=== PATIENT | male | born 1930 | race Caucasian/White ===

== ENCOUNTER 2018-12-17 06:24 | Emergency (ER) | payer MEDICARE ==
[~2018-12-17] VITALS: Ht 175.3 cm; Wt 78.4 kg
--- NOTE | 2018-12-17 06:58 | NUR ---
report given to hanna merritt
[2018-12-17] MEDS ORDERED: DIPH,PERTUSS(ACELL),TET VAC/PF 0.5 ML IM-VACC ONE ×2 (07:00→08:35)
--- NOTE | 2018-12-17 07:19 | NUR ---
Recieved bedside report from DESIREE Heath. KURT. Pt resting awake on gurney. Pt has approximately 1cm or smaller laceration to tip of right forth finger with ecchymosis to palm side of right 4th finger. All safety measures in place. Call light within reach. No needs expressed at this time.
--- NOTE | 2018-12-17 07:56 | NUR ---
Pt transfered on gurney to imaging.
--- NOTE | 2018-12-17 09:13 | NUR ---
Pt back to room from imaging.
--- NOTE | 2018-12-17 09:22 | NUR ---
Pt up independently to change into personal clothing. NADN. No obvious defecits observed.
--- NOTE | 2018-12-17 09:33 | NUR ---
Patient given discharge instructions and they have confirmed that they understand the instructions. Patient ambulatory with steady gait. Pt left with all personal belongings, discharge paperwork, and prescriptions.
[2018-12-17 09:34] VITALS: BP 133/67
== END 2018-12-17 09:36 | disposition home or self-care (01) ==
LOC: ED 07:45
DX: S60.512A Abrasion of left hand, initial encounter (principal); R51 Headache; W01.0XXA Fall on same level from slipping, tripping and stumbling without subsequent striking against object, initial encounter; Y93.01 Activity, walking, marching and hiking; Y92.410 Unspecified street and highway as the place of occurrence of the external cause; Y99.8 Other external cause status
CPT/HCPCS: 70450; 71045; 72125; 72190; 90471; 90715; 93005

== ENCOUNTER 2019-07-10 09:09 | Emergency (ER) | payer MEDICARE ==
[~2019-07-10] VITALS: Ht 175.3 cm; Wt 75.9 kg
[2019-07-10 09:11] VITALS: BP 161/81
== END 2019-07-10 10:46 | disposition home or self-care (01) ==
LOC: ED 10:30
DX: L20.9 Atopic dermatitis, unspecified (principal); Z76.0 Encounter for issue of repeat prescription
CPT/HCPCS: 99283

== ENCOUNTER 2019-09-06 11:37 | Emergency (ER) | payer MEDICARE | END 2019-09-06 11:58 | LOC: ED 11:52 | DX: J34.89 Other specified disorders of nose and nasal sinuses (principal); Z53.21 Procedure and treatment not carried out due to patient leaving prior to being seen by health care provider ==

== ENCOUNTER 2019-09-13 10:37 | Emergency (ER) | payer MEDICARE ==
[~2019-09-13] VITALS: Ht 175.3 cm; Wt 78.2 kg
[2019-09-13 10:58] VITALS: BP 154/78
--- NOTE | 2019-09-13 11:28 | NUR ---
Pt to room from lobby.
--- NOTE | 2019-09-13 12:10 | NUR ---
PT CAME IN CO OF LEG WEAKNESS. HE SAID HE FELL A MONTH AGO. DENIES LOC OR FEELING DIZZY BEFORE FALL. HE SAYS HE FEELS THE WEAKNESS IN HIS LEGS 3X A WEEK. PT REPORTS NUMBNESS IN HIS LOWER RIGHT LEG
[2019-09-13] MEDS ORDERED: [UNRECOGNIZED DRUG - OTHER] (12:26)
[2019-09-13 13:02] LABS: ALANINE AMINOTRANSFERASE 20 U/L (12-78); ALBUMIN 3.3 g/dL (3.4-5.0); ANION GAP 6 mmol/L (5-15); CALCIUM 8.6 mg/dL (8.5-10.1); CHLORIDE 111 mmol/L (98-107); CREATININE 1.03 mg/dL (0.7-1.3)
[2019-09-13 13:04] LABS: ALKALINE PHOSPHATASE 75 U/L (45-117); BILIRUBIN,TOTAL 0.6 mg/dL (0.2-1.0)
[2019-09-13 13:22] LABS: MEAN CORPUSCULAR HEMOGLOBIN 21.7 pg (27.5-34.5); MEAN CORPUSCULAR VOLUME 70.1 fL (81-97); MEAN PLATELET VOLUME 8.2 fL (7.4-10.4); RED CELL DISTRIBUTION WIDTH 19.7 % (9.4-14.8)
[2019-09-13 13:23] LABS: PLATELET COUNT 1721 x10^3/uL (130-400)
[2019-09-13 13:25] LABS: BASOPHILS # (AUTO) 0.06 x10^3/uL (0-0.1); BASOPHILS % (AUTO) 0 % (0-1); EOSINOPHILS # (AUTO) 0.36 x10^3/uL (0-0.4); EOSINOPHILS % (AUTO) 2 % (1-7); LYMPHOCYTES # (AUTO) 2.03 x10^3/uL (1-3.4); LYMPHOCYTES % (AUTO) 13 % (22-44); MD MORPH REVIEW ONLY; MONOCYTES # (AUTO) 1.27 x10^3/uL (0.2-0.8); MONOCYTES % (AUTO) 8 % (2-9); NEUTROPHILS # (AUTO) 11.51 x10^3/uL (1.8-6.8); NEUTROPHILS % (AUTO) 76 % (42-75)
[2019-09-13 13:35] LABS: MICROSCOPIC NOT IND
[2019-09-13 13:38] LABS: ANISOCYTOSIS 1+; OVALOCYTES 1+
[2019-09-13 13:39] LABS: <PLATELET ESTIMATE> INCREASED; ACANTHOCYTES 1+; LARGE PLATELETS 1+
[2019-09-13 13:40] LABS: GIANT PLATELETS 1+
[2019-09-13 13:42] LABS: TEAR DROPS 1+
[2019-09-13 13:52] LABS: CULTURE INDICATED? NO
--- NOTE | 2019-09-13 14:07 | NUR ---
PT LEFT AMA. WAS EDUCATED ON SEVERITY OF BLOOD WORK. EXPLAINED TO HIM THAT IF HE LEAVES HE COULD HAVE A FATALITY. PT SIGNED AMA AND LEFT
== END 2019-09-13 14:09 | disposition left against medical advice (07) ==
LOC: ED 12:00
DX: D47.3 Essential (hemorrhagic) thrombocythemia (principal)
CPT/HCPCS: 36415; 80053; 81003; 85025; 99283

== ENCOUNTER 2019-11-11 12:32 | Emergency (ER) | payer MEDICARE ==
[~2019-11-11] VITALS: Ht 177.8 cm; Wt 80.0 kg
[~2019-11-11 12:32] MED LIST: [UNRECOGNIZED DRUG - OTHER]
[2019-11-11 12:57] VITALS: BP 105/81
--- NOTE | 2019-11-11 14:26 | NUR ---
WOOD HEEL BACK LINER: PT NOT IN LOBBY
--- NOTE | 2019-11-11 14:30 | NUR ---
DETAIL ASSEMBLER: NOT IN LOBBY
--- NOTE | 2019-11-11 15:04 | NUR ---
CLIENT TECHNICAL SUPPORT ASSOCIATE: NOT IN LOBBY
--- NOTE | 2019-11-11 15:28 | NUR ---
CLOTHING PATTERNMAKER: NOT IN LOBBY
== END 2019-11-11 15:30 | disposition left against medical advice (07) ==
LOC: ED 15:00
DX: Z53.21 Procedure and treatment not carried out due to patient leaving prior to being seen by health care provider (principal)

== ENCOUNTER 2019-11-14 11:57 | Emergency (ER) | payer MEDICARE ==
[~2019-11-14] VITALS: Ht 182.9 cm; Wt 85.0 kg
[2019-11-14 12:28] VITALS: BP 144/108
--- NOTE | 2019-11-14 13:05 | NUR ---
THIS IS A 89 YO M W/ C/O BLE PAIN. PT STATES "MY LEGS JUST GIVE OUT". PT STATES "[facility] AND [facility] WANTED TO DO A HEAD XRAY BUT I WOULDNT LET THEM, BUT YOU GUYS CAN DO WHATEVER YOU WANT". PT IS RESTING ON GURNEY IN GOWN. RESP EVEN AND UNLABORED, NADN. CALL LIGHT IN REACH. AWAITING ED EVAL.
--- NOTE | 2019-11-14 13:40 | NUR ---
PT LEFT PRIOR TO RECEIVING DC PAPERWORK.
== END 2019-11-14 13:41 | disposition home or self-care (01) ==
LOC: ED 13:35
DX: L40.9 Psoriasis, unspecified (principal); M79.605 Pain in left leg; M79.604 Pain in right leg; N03.2 Chronic nephritic syndrome with diffuse membranous glomerulonephritis
CPT/HCPCS: 99283

== ENCOUNTER 2019-12-19 08:59 | Emergency (ER) | payer MEDICARE ==
[~2019-12-19] VITALS: Ht 175.3 cm; Wt 76.0 kg
[2019-12-19 09:02] VITALS: BP 154/87
--- NOTE | 2019-12-19 09:25 | NUR ---
FIRST CONTACT WITH PT. PT STATES "I NEED MORE PILLS. I DEVELOPED SOMETHING IN MY RIGHT GROIN. I DON'T KNOW WHAT THE HELL IT IS." NO OTHER COMPLAINTS. PT DENIES ANY PAIN. PT STATES "I JUST NEED MORE PILLS THAT'S WHY I'M HERE." PT REFUSED GOWN/VS. PT SITTING ON CHAIR. PT'S AOX4. RESPS EVEN AND UNLABORED.
--- NOTE | 2019-12-19 09:31 | NUR ---
PA AT BEDSIDE TO EVALUATE AT THIS TIME.
--- NOTE | 2019-12-19 10:25 | NUR ---
PT SITTING ON CHAIR. PT'S AOX4. RESPS EVEN AND UNLABORED. DENIES ANY NEEDS AND CONCERNS AT THIS TIME.
[2019-12-19 10:53] LABS: MEAN CORPUSCULAR HEMOGLOBIN 22.7 pg (27.5-34.5); MEAN CORPUSCULAR HGB CONC 31.2 g/dL (33.2-36.2); MEAN CORPUSCULAR VOLUME 72.7 fL (81-97); RED BLOOD COUNT 5.83 x10^6/uL (4.38-5.82); RED CELL DISTRIBUTION WIDTH 21.5 % (9.4-14.8)
[2019-12-19 10:58] LABS: ALANINE AMINOTRANSFERASE 22 U/L (12-78); ALBUMIN 3.2 g/dL (3.4-5.0); ANION GAP 7 mmol/L (5-15); CALCIUM 8.7 mg/dL (8.5-10.1); CHLORIDE 112 mmol/L (98-107); CREATININE 0.95 mg/dL (0.7-1.3)
[2019-12-19 11:00] LABS: ALKALINE PHOSPHATASE 79 U/L (45-117); BILIRUBIN,TOTAL 0.9 mg/dL (0.2-1.0); TOTAL PROTEIN 6.3 g/dL (6.4-8.2)
[2019-12-19 11:19] LABS: MD MORPH REVIEW ONLY
[2019-12-19 11:20] LABS: BASOPHILS # (AUTO) 0.06 x10^3/uL (0-0.1); BASOPHILS % (AUTO) 0 % (0-1); EOSINOPHILS % (AUTO) 2 % (1-7); LYMPHOCYTES # (AUTO) 1.46 x10^3/uL (1-3.4); LYMPHOCYTES % (AUTO) 11 % (22-44); MONOCYTES # (AUTO) 0.96 x10^3/uL (0.2-0.8); MONOCYTES % (AUTO) 7 % (2-9); NEUTROPHILS # (AUTO) 10.42 x10^3/uL (1.8-6.8); NEUTROPHILS % (AUTO) 79 % (42-75)
[2019-12-19 11:22] LABS: <PLATELET ESTIMATE> INCREASED; MEAN PLATELET VOLUME 8.3 fL (7.4-10.4); PLATELET COUNT 1738 x10^3/uL (130-400)
[2019-12-19 11:23] LABS: ANISOCYTOSIS 1+; MICROCYTOSIS 1+; OVALOCYTES 2+
[2019-12-19 11:24] LABS: HYPOCHROMIA 1+
[2019-12-19 11:25] LABS: ACANTHOCYTES 1+; LARGE PLATELETS 1+; SCHISTOCYTES 1+
--- NOTE | 2019-12-19 11:38 | NUR ---
PA AT BEDSIDE TO EXPLAIN ALL RESULTS AT THIS TIME.
== END 2019-12-19 11:44 | disposition home or self-care (01) ==
LOC: ED 09:52
DX: G62.9 Polyneuropathy, unspecified (principal); D47.3 Essential (hemorrhagic) thrombocythemia
CPT/HCPCS: 36415; 80053; 85025; 99283